=== PATIENT | male | born 1960 | race Caucasian/White ===

== ENCOUNTER → 2020-10-16 09:54 | Outpatient (BNVA) | payer MEDICARE, MEDICAID, OTHER, SELFPAY | PROVIDERS: Visit Provider Urology | DX: C64.9 Malignant neoplasm of unspecified kidney, except renal pelvis (principal); N52.9 Male erectile dysfunction, unspecified | CPT/HCPCS: 99212 ==

== ENCOUNTER → 2021-11-11 13:55 | Outpatient (BNVA) | payer MEDICARE, MEDICAID, SELFPAY | PROVIDERS: PCP Internal Medicine; Visit Provider Urology | DX: C64.9 Malignant neoplasm of unspecified kidney, except renal pelvis (principal); N52.9 Male erectile dysfunction, unspecified; Z90.5 Acquired absence of kidney | CPT/HCPCS: 99212 ==

== ENCOUNTER 2023-03-10 15:01 | Outpatient (AMB) | payer MEDICARE, MEDICAID, SELFPAY ==
--- NOTE | 2023-03-10 15:06 | A.OFFVIS_ITS ---
Intake Intake Visit Reasons: 1Y Follow Up(Renal CA/Erectile Dys) Intake Note: Patient is Present for Follow Up Urology Medication:None Antibiotic Allergies: None Blood Thinners: None Allergies apple [APPLES] Allergy (Severe, Verified 11/11/21 14:14) ANAPHYLAXIS leiva [CHERRIES] Allergy (Severe, Verified 11/11/21 14:14) ANAPHYLAXIS, edema, edema Apple (Diagnostic) Allergy (Unknown, Uncoded 11/11/21 14:14) edema HPI HPI Comments History of Present Illness Details Mr Coronado is a very pleasant male. They are a patient of Dr Silveira. They are seen in the office today for the following urologic conditions - renal cancer - erectile dysfunction Continues with surveillance at [facility] with Dr. Smart Imaging every 6 months Has completed chemotherapy January 2021 Has dormant disease Good response to injectables for erectile dysfunction Follow-up in 6m Erectile dysfunction Non responsive to oral medications Injectable prescription provided Uses [facility] Will call once he receives medication Renal cancer. Nephrectomy 11/23 Carlos 3 subsequent immunotherapy [facility] ? Discussed imaging findings ?Left lung lesion 12mm - seen on abdo CT - thoracic surgeon requesting CT chest. ? They present for ?continued followup and management, left side, renal cancer.? The renal mass was diagnosed?incidentally, during evaluation for, hematuria.? Imaging included?11/[address] (computed tomography) scan of the abdomen/pelvis - 12cm renal mass, >5.9 cm in size ?11/24 NAD - 2mm L basilar lesion ?11/24 , a CT (computed tomography) scan of the abdomen/pelvis, solitary kidney, no evidence for disease.? Prior treatment(s) included?11/23 , nephrectomy .? Staging of initial cancer?11/23 T2b, with no positive lymph nodes, without vena cava involvement, without metastasis Grade III/IV.? The diagnosis was?renal cell carcinoma.? Follow-up CT imaging 2019 indicated left lung lesion 12 mm 2019 Underwent IL2 treatment at [facility] - adjuvant therapy through 2020 ? Current symptoms include? hematuria ?No ? dysuria ?No ? fever ?No ? chills ?No ? Follow up imaging includes?05/25 , chest CT scan - stable small left lower lobe lung lesion ?02/26 , abdominal CT scan - 12mm left lung lesion, lower lobe ?02/26 CXR normal.? Therapeutic plan continue interval imaging [facility] Medical History Chronic fatigue syndrome Chronic pain of left knee Erectile dysfunction Gout Heat stroke HTN (hypertension) Hyperlipidemia Perineal fistula Renal cancer Review of Systems Const Denies chills and Denies fever(s) Card Reports no additional complaints and Denies syncope Resp Denies cough GI Denies abdominal pain and Denies heartburn Reports as per HPI and Denies change in libido Neuro Denies syncope Psych Denies change in libido Endo Denies change in libido Physical Exam Const General: cooperative, healthy appearing, comfortable and no acute distress Orientation/consciousness: patient oriented x3 HEENT Face and sinus: Yes normal facial exam Mouth: moist mucous membranes Neck Neck: Yes normal visual inspection, Yes full ROM and Yes trachea midline Chest Chest palpation & inspection: normal inspection of the chest Resp Effort & Inspection: normal respiratory effort, able to speak in complete sentences and no respiratory distress GI Inspection: Yes normal to inspection Back/Spine/Pelvis Cervical Spine: normal cervical lordosis Thoracic/Lumbar Spine: thoracic and lumbar spine normal to inspection Skin General skin exam: no rashes or lesions noted Neuro General: patient oriented x3, gait normal, tone normal and moves all extremities Extrem General: Yes normal to inspection and Yes capillary refill normal Assessment & Plan Assessment & Plan (1) Erectile dysfunction: Code(s): N52.9 - Male erectile dysfunction, unspecified (2) Renal cancer: Comment: 2016 Nephrectomy 2019 Stage 4 - Lung lesion with Jaki Sanket Code(s): C64.9 - Malignant neoplasm of unspecified kidney, except renal pelvis Plan Three-month follow-up tele Trial oral therapy Medications: New tadalafil [id number] [facility] [id number] Member [id number] 10 mg PO DAILY 90 tabs 0RF sexual activity 90 days N52.9 - Male erectile dysfunction, unspecified Patient Instructions: Imaging studies, laboratory and physical exam results were discussed and reviewed in detail. No major barriers to patient understanding were identified. An opportunity to ask questions regarding the treatment plan was provided. All questions were answered. The patient expressed understanding and agreement with the above treatment plan. The patient is aware they should contact our office by phone for worsening of their current condition or the appearance of new urologic symptoms. Compliance is encouraged with any medications and followup testing that is ordered. It is a privilege to participate in the urologic care of your patient. If you have any questions or concerns regarding treatment for the above conditions, or other urologic issues, please do not hesitate to contact me. The office telephone contact is [phone]. This note is constructed using voice recognition software. While every effort has been made to ensure accuracy optometrist owner errors may have been included. Yours sincerely, Dr Sanit Thomas MD, [facility] - Urology Providers of Expert, Compassionate Care for the Genitourinary System Coding Level of Care Code Est Pt Level 4 (33188) Diagnoses Erectile dysfunction N52.9 Renal cancer C64.9
== END 2023-03-10 15:32 | disposition home or self-care (01) ==
PROVIDERS: PCP Internal Medicine; Visit Provider Urology
DX: N52.9 Male erectile dysfunction, unspecified (principal); C64.9 Malignant neoplasm of unspecified kidney, except renal pelvis
CPT/HCPCS: 99214

== ENCOUNTER → 2023-03-10 15:01 | Outpatient (BNVA) | payer MEDICARE, MEDICAID, SELFPAY | PROVIDERS: PCP Internal Medicine; Visit Provider Urology | DX: C64.2 Malignant neoplasm of left kidney, except renal pelvis (principal); N52.9 Male erectile dysfunction, unspecified; Z90.5 Acquired absence of kidney | CPT/HCPCS: 99212 ==

== ENCOUNTER 2024-07-06 11:32 | Outpatient (AMB) | payer MEDICARE, MEDICAID, SELFPAY ==
--- NOTE | 2024-07-06 11:34 | MHC.OFFVIS ---
Intake Visit Reasons: med management Intake Note: Patient is present for MED MANAGEMENT Urology Medication:TADALAFIL,ALLOPURINOL Antibiotic Allergy:NONE Blood Thinner:NONE Dentist Private Practice Required: No Allergies apple [APPLES] Allergy (Severe, Verified 07/06/24 11:35) ANAPHYLAXIS leiva [CHERRIES] Allergy (Severe, Verified 07/06/24 11:35) ANAPHYLAXIS, edema, edema Apple (Diagnostic) Allergy (Unknown, Uncoded 07/06/24 11:35) edema HPI Comments Details: Mr Coronado is a very pleasant male. They are a patient of Dr Silveira. They are seen in the office today for the following urologic conditions - renal cancer - erectile dysfunction Telemedicine Evaluation 15 min Consultation [employer] Sandra Video Continues with surveillance at [facility] with Dr. Smart Imaging every 6 months Has completed chemotherapy January 2021 Has dormant disease Good response to injectables for erectile dysfunction Needs refill from [facility] Erectile dysfunction Non responsive to oral medications Injectable prescription provided Uses [facility] Will call once he receives medication Renal cancer. Nephrectomy 11/23 Carlos 3 Subsequent Immunotherapy [facility] ? Discussed imaging findings ?Left lung lesion 12mm - seen on abdo CT - thoracic surgeon requesting CT chest. ? They present for ?continued followup and management, left side, renal cancer.? The renal mass was diagnosed?incidentally, during evaluation for, hematuria.? Imaging included?11/[address] (computed tomography) scan of the abdomen/pelvis - 12cm renal mass, >5.9 cm in size ?11/24 NAD - 2mm L basilar lesion ?11/24 , a CT (computed tomography) scan of the abdomen/pelvis, solitary kidney, no evidence for disease.? Prior treatment(s) included?11/23 - nephrectomy ? Staging of initial cancer?11/23 T2b, with no positive lymph nodes, without vena cava involvement, without metastasis Grade III/IV.? The diagnosis was?renal cell carcinoma.? Follow-up CT imaging 2019 indicated left lung lesion 12 mm 2019 Underwent IL2 treatment at [facility] - adjuvant therapy through 2020 ? Follow up imaging includes?05/25 , chest CT scan - stable small left lower lobe lung lesion ?02/[address] scan - 12mm left lung lesion, lower lobe ?02/26 CXR normal.? Therapeutic plan continue interval imaging [facility] Medical History Chronic fatigue syndrome Chronic pain of left knee Erectile dysfunction Gout Heat stroke HTN (hypertension) Hyperlipidemia Perineal fistula Renal cancer Review of Systems Const All systems reviewed & are unremarkable except as noted in HPI and below Reports no additional complaints Resp Reports no additional complaints GI Reports no additional complaints Reports as per HPI Musc Reports no additional complaints Physical Exam Telemedicine evaluation Appropriate responses Regular breathing rate and rhythm HEENT Head: Yes normal to inspection Ears: hearing grossly normal bilaterally Eyes General: appearance normal, both eyes and all related structures Neck Neck: Yes normal visual inspection Chest Chest palpation & inspection: normal inspection of the chest Resp Effort & Inspection: normal respiratory effort and able to speak in complete sentences Telehealth Telehealth Telehealth Platform: [employer] Location of provider rendering services: practice address Location of patient: address on file Patient Identification confirmed using: Name, : Yes Telehealth method: video Patient verbally consented to treatment: Yes Patient verbally consented to billing insurance company: Yes Patient informed of any privacy concerns related to visit: Yes Minutes spent on Phone/Video with Pt.: 15 Assessment & Plan Assessment & Plan (1) Erectile dysfunction: Code(s): N52.9 - Male erectile dysfunction, unspecified Category: Medical (2) Renal cancer: Comment: 2016 Nephrectomy 2019 Stage 4 - Lung lesion with Jaki Sanket Code(s): C64.9 - Malignant neoplasm of unspecified kidney, except renal pelvis Category: Medical Plan Refill medications One year follow-up Medications: New papav-phentolamine in water 30 mg- 1 mg/mL Bimix #4 - 5cc vial with 1cc 31g syringe MensMD - 0.4 mL intra-cavernosal ONCE 28 days PRN 5 mL 5RF erectile dysfunction MDD 0.4ml Patient Instructions: This note is constructed using voice recognition software. While every effort has been made to ensure accuracy bobj developer errors may have been included. Imaging studies, laboratory and physical exam results were discussed and reviewed in detail. No major barriers to patient understanding were identified. An opportunity to ask questions regarding the treatment plan was provided. All questions were answered. The patient expressed understanding and agreement with the above treatment plan. The patient is aware they should contact our office by phone for worsening of their current condition or the appearance of new urologic symptoms. Compliance is encouraged with any medications and followup testing that is ordered. It is a privilege to participate in the urologic care of your patient. If you have any questions or concerns regarding treatment for the above conditions, or other urologic issues, please do not hesitate to contact me. The office telephone contact is [phone]. Sincerely, Dr Santi Thomas MD, [facility] - Urology Compassionate Specialist Care for the Genitourinary System Coding Level of Care Code Tele Est Pt Level 3 (60228) Complex EM visit Add On G2211 Diagnoses Erectile dysfunction N52.9 Renal cancer C64.9
--- OUTSIDE RECORDS SUMMARY | 2024-07-06 11:52 | XMS_ITS | Clinical Summary ---
Author Organization [facility] ity Address [address] [place] [address] Care Team Providers Care Battery Service Technician Name Role Phone Unavailable Primary Care Provider Unavailabl e Social History Tobacco Use Types Packs/Day Years Used Date Smoking Tobacco: Never Assessed Sex and Gender Information Value Date Recorded Sex Assigned at Not on file Legal Sex Male 10:07 AM EST Gender Identity Not on file Sexual Orientation Not on file Plan of Treatment Health Maintenance Due Date Last Done Comments DTaP,Tdap,and Td Vaccines (1 - Tdap) 1977 Pneumococcal Vaccine: 50+ Ye ars (1 of 1 - PCV) 2008 Zoster Vaccines (1 of 2) 2008 COVID-19 Vaccine ( - 2023-2 5 season) 2023 Influenza Vaccine (Season Ended) 2024 RSV Immunization Adult Patie nts (1 - 1-dose 75+ series) 2033 HIB Vaccines Aged Out No longer eligi ble based on patient's age to complete this topic HPV Vaccines Aged Out No longer eligi ble based on patient's age to complete this topic Hepatitis A Vaccines Aged Out No long er eligible based on patient's age to complete this topic Hepatitis B Vaccines Aged Out No long er eligible based on patient's age to complete this topic IPV Vaccines Aged Out No longer eligi ble based on patient's age to complete this topic MMR Vaccines Aged Out No longer eligi ble based on patient's age to complete this topic Meningococcal ACWY Vaccine Aged Out N o longer eligible based on patient's age to complete this topic Meningococcal B Vaccine Aged Out No l onger eligible based on patient's age to complete this topic RSV Immunization Patients Un daisy 20 months Aged Out No longer eligible b ased on patient's age to complete this topic Varicella Vaccines Aged Out No longer eligible based on patient's age to complete this topic
== END 2024-07-06 13:00 | disposition home or self-care (01) ==
LOC: HO.HUSH 11:32
PROVIDERS: PCP Internal Medicine; Visit Provider Urology
DX: N52.9 Male erectile dysfunction, unspecified (principal); C64.9 Malignant neoplasm of unspecified kidney, except renal pelvis
CPT/HCPCS: 99213; G2211

== ENCOUNTER → 2024-07-06 11:32 | Outpatient (BNVA) | payer MEDICARE, SELFPAY | PROVIDERS: PCP Internal Medicine; Visit Provider Urology ==